=== PATIENT | male | born 1955 | race Caucasian/White ===

== ENCOUNTER 2016-09-21 12:29 | Emergency (ER) | payer BC ==
[2016-09-21] MEDS ORDERED: Sodium Chloride 0.9% 10 ML Syringe FLUSH PRN (13:07)
[2016-09-21] MEDS ORDERED: Ketorolac 30 MG/ML SDV IVPUSH ONE (13:07)
[2016-09-21 14:21] VITALS: BP 156/86
--- NOTE | 2016-09-21 14:25 | EDM.PDOC ---
ED HPI GENERAL MEDICAL PROBLEM - General Chief Complaint: Chest Pain Stated Complaint: CHEST PRESSURE Time Seen by Provider: 09/21/16 13:00 Source of Information: Reports: Patient History Limitations: Reports: No Limitations - History of Present Illness INITIAL COMMENTS - FREE TEXT/NARRATIVE: Rosalino is a 60 year old male with a hx of untreated HTN who presents to the ED today with c/o sudden onset of left sided non-radiating chest pain that started right after patient "sneezed really hard". Patient denies any known cardiac hx , he denies any family hx of heart disease. Patient does not smoke. Patient reports that he has had sinus drainage ongoing for the last several weeks that has not improved with decongestants including most recently singulair which was prescribed last week. Patient reports occasional cough. Patient does report mild sob with regard to not being able to breath out of his nose. Patient denies any radiating of his chest pain or associated numbness/tingling/nausea. Onset: Today, Sudden Left Chest Pain Score (Numeric/FACES): 3 - Related Data Allergies Allergy/AdvReac Type Severity Reaction Status Date / Time No Known Allergies Allergy Verified 09/21/16 12:41 Home Meds: Home Meds NK [No Known Home Meds] 09/21/16 [History] Past Medical History HEENT History: Reports: Other (See Below) Other HEENT History: laryngitis Cardiovascular History: Reports: Hypertension - Past Surgical History Neurological Surgical History: Reports: Laminectomy Social & Family History - Tobacco Use Smoking Status *Q: Never Smoker - Alcohol Use Days Per Week of Alcohol Use: 7 Number of Drinks Per Day: 4 Total Drinks Per Week: 28 - Recreational Drug Use Recreational Drug Use: No ED ROS GENERAL - Review of Systems Review Of Systems: ROS reveals no pertinent complaints other than HPI. ED EXAM, GENERAL - Physical Exam Exam: See Below Exam Limited By: No Limitations General Appearance: Alert, WD/WN, No Apparent Distress Eye Exam: Bilateral Eye: PERRL Ears: Normal External Exam, Normal TMs Nose: Normal Inspection Throat/Mouth: Normal Inspection, Normal Oropharynx Head: Atraumatic Neck: Normal Inspection, Supple, Non-Tender Respiratory/Chest: No Respiratory Distress, Lungs Clear, Other (left sided chest is tender to palpation) Cardiovascular: Normal Peripheral Pulses, Regular Rate, Rhythm, No Edema, No Murmur GI/Abdominal: Normal Bowel Sounds, Non-Tender Neurological: Alert, Oriented, CN II-XII Intact, Normal Cognition Psychiatric: Normal Affect, Normal Mood Skin Exam: Warm, Dry, Intact Lymphatic: No Adenopathy EKG INTERPRETATION EKG Date: 09/21/16 Time: 13:00 Rhythm: NSR [place]: normal P-wave: present QRS: normal ST-T: normal QT: normal Comparison: NA - no prior EKG Course - Vital Signs Text/Narrative:: Rosalino is a 60 year old male who presents to the ED today with c/o left sided chest pain. Patient on arrival here has pain with palpation of left chest, likely pleuritic vs. muscul-skeletal in nature rather than cardiac. Please refer to HPI and focused exam. Patient on exam is welll hydrated, he is non- toxic appearing. Patient does have some minimal frontal sinus tenderness on exam. EKG obtained on arrival and is negative for any acute ischemic changes. Blood work was obtained and is rather unremarkable. Patient has a normal white count, CMP returns with mildly elevated AST of 56 and is otherwise WNL. Troponin is undectable. CXR negative for any acute infiltrate, reviewed with Dr. Schmid. I feel patient's pain is likely pleuritic. I feel he is stable to be discharged home. With regard to sinus drainage/pressure and ongoing symptoms, I am going to start patient on a Z pack for acute sinusitis as well as Flonase. Patient can continue Singulair as prescribed. I would like patient to follow up with his PCP in the next week for ED visit today as well as discuss blood pressure and to see if patient needs to resume taking an anti- hyptertensive. Reasons to return to the ED were discussed. Patient and his family are agreeable to plan of care and questions were answered prior to discharge. Patient discharged from the ED in stable condition. Last Recorded V/S: Last Vital Signs Temp 36.4 C 09/21/16 12:36 Pulse 79 09/21/16 14:17 Resp 16 09/21/16 14:17 BP 156/86 H 09/21/16 14:17 Pulse Ox 96 09/21/16 14:17 - Orders/Labs/Meds Orders: Active Orders 24 hr Category Date Time Status EKG Documentation Completion [RC] ASDIRECTED Care 09/21/16 13:08 Active Peripheral IV Care [RC] . DIRECTED Care 09/21/16 13:07 Active Chest 2V [CR] Stat Exams 09/21/16 13:08 Taken Peripheral IV Insertion Adult [OM.PC] Routine Oth 09/21/16 13:07 Ordered EKG 12 Lead [EK] Stat Ther 09/21/16 13:08 Ordered Labs: Laboratory Tests 09/21/16 09/21/16 Range/Units 13:16 13:16 WBC 4.9 (4.5-11.0) K/uL RBC 4.47 (4.30-5.90) M/uL Hgb 14.5 (12.0-15.0) g/dL Hct 43.4 (40.0-54.0) % MCV 97 (80-98) fL MCH 32 H (27-31) pg MCHC 33 (32-36) % Plt Count 151 (150-400) K/uL Neut % (Auto) 65 (36-66) % Lymph % (Auto) 22 L (24-44) % [place] % (Auto) 11 H (2-6) % Eos % (Auto) 1 L (2-4) % Baso % (Auto) 1 (0-1) % Sodium 135 L (140-148) mmol/L Potassium 4.3 (3.6-5.2) mmol/L Chloride 99 L (100-108) mmol/L Carbon Dioxide 29 (21-32) mmol/L Anion Gap 11.3 (5.0-14.0) mmol/L BUN 14 (7-18) mg/dL Creatinine 1.0 (0.8-1.3) mg/dL Est Cr Clr Drug Dosing 91.00 mL/min Estimated GFR (MDRD) > 60 (>60) Glucose 107 H (74-106) mg/dL Calcium 8.6 (8.5-10.1) mg/dL Total Bilirubin 0.6 (0.2-1.0) mg/dL AST 56 H (15-37) U/L ALT 72 (12-78) U/L Alkaline Phosphatase 55 (46-116) U/L Troponin I < 0.017 (0.000-0.056) ng/mL C-Reactive Protein 0.22 (0.0-0.3) mg/dL Total Protein 7.7 (6.4-8.2) g/dL Albumin 3.7 (3.4-5.0) g/dL Globulin 4.0 H (2.3-3.5) g/dL Albumin/Globulin Ratio 0.9 L (1.2-2.2) Meds: Medications Discontinued Medications Generic Name Dose Route Start Last Admin Trade Name Freq PRN Reason Stop Dose Admin Ketorolac Tromethamine 30 mg 09/21/16 13:07 09/21/16 13:57 Toradol IVPUSH 09/21/16 13:08 30 mg ONETIME ONE Administration Sodium Chloride 10 ml 09/21/16 13:07 09/21/16 13:21 Saline Flush FLUSH 10 ml ASDIRECTED PRN Administration Keep Vein Open Departure - Departure Time of Disposition: 14:30 Disposition: Home, Self-Care 01 Condition: good Clinical Impression: Pleuritic chest pain, Acute sinusitis with symptoms > 10 days Clinical Impression: (Ruled Out): Paroxysmal supraventricular tachycardia - Discharge Information Instructions: Chest Wall Pain, [id number], Sinusitis, Adult, [id number] Referrals: PCP,None [Primary Care Provider] - Forms: ED Department Discharge Additional Instructions: Start the Z pack today. You can start the Flonase tonight. Keep track of your blood pressure. Follow up with Primary Care later this week. Return to the ED with any complications/worsening symptoms. - My Orders Last 24 Hours: My Active Orders 09/21/16 13:07 Peripheral IV Care [RC] . DIRECTED Peripheral IV Insertion Adult [OM.PC] Routine 09/21/16 13:08 EKG Documentation Completion [RC] ASDIRECTED Chest 2V [CR] Stat EKG 12 Lead [EK] Stat - Assessment/Plan Last 24 Hours: My Active Orders 09/21/16 13:07 Peripheral IV Care [RC] . DIRECTED Peripheral IV Insertion Adult [OM.PC] Routine 09/21/16 13:08 EKG Documentation Completion [RC] ASDIRECTED Chest 2V [CR] Stat EKG 12 Lead [EK] Stat
--- NOTE | 2016-09-22 10:26 | CR ---
Chest 2V HISTORY: No Clinical Info FINDINGS: Heart size within normal limits. Pulmonary vasculature within normal limits. No evidence f or focal consolidation or cardiopulmonary process. IMPRESSION: No radiographic evidence for acute cardiopulmonary process.
== END 2016-09-21 14:36 | disposition home or self-care (01) ==
LOC: JP.ED 12:29
DX: R07.81 Pleurodynia (principal); J01.90 Acute sinusitis, unspecified; I10 Essential (primary) hypertension; Z98.890 Other specified postprocedural states
CPT/HCPCS: 36415; 71020; 80053; 84484; 85025; 86140; 93005; 96374; 99285; J1885; J7050

== ENCOUNTER 2016-11-22 12:32 | Emergency (ER) | payer BC ==
[2016-11-22 12:58] VITALS: BP 170/102
--- NOTE | 2016-11-22 13:28 | EDM.PDOCBH ---
[id number]: ANXIETY Time Seen by Provider: 11/22/16 13:10 Source of Information: Reports: Patient, Family History Limitations: Reports: No Limitations - History of Present Illness INITIAL COMMENTS - FREE TEXT/NARRATIVE: 61-year-old male with chronic anxiety, alcohol abuse issues just got diagnosed with lung cancer 2 days ago. He is having a lot of anxiety dealing with this, he knows he can't drink but is afraid he may have some withdrawal. His left for a while this morning to do some errands and he hyperventilated but calmed down when she got home. Severity: Moderate Associated Symptoms: Reports: Malaise, Shortness of Breath. Denies: Chest Pain , Nausea/Vomiting DENIES Pain Score (Numeric/FACES): 0 - Related Data Allergies Allergy/AdvReac Type Severity Reaction Status Date / Time No Known Allergies Allergy Verified 11/22/16 13:01 Home Meds: Home Meds NK [No Known Home Meds] 09/21/16 [History] Past Medical History HEENT History: Reports: Other (See Below) Other HEENT History: laryngitis Cardiovascular History: Reports: Hypertension Respiratory History: Reports: Other (See Below) Other Respiratory History: seasonal allergies. Recent lung ca diagnosis Psychiatric History: Reports: Anxiety Oncologic (Cancer) History: Reports: Lung - Past Surgical History Respiratory Surgical History: Reports: None Neurological Surgical History: Reports: Laminectomy Musculoskeletal Surgical History: Reports: Other (See Below) Other Musculoskeletal Surgeries/Procedures:: laminectomy Social & Family History - Tobacco Use Smoking Status *Q: Never Smoker Second Hand Smoke Exposure: No - Alcohol Use Days Per Week of Alcohol Use: 7 Number of Drinks Per Day: 4 Total Drinks Per Week: 28 - Recreational Drug Use Recreational Drug Use: No ED ROS GENERAL - Review of Systems Review Of Systems: See Below Constitutional: Reports: Malaise. Denies: Fever, Chills HEENT: Reports: Other (Horse voice) Respiratory: Reports: Shortness of Breath, Cough Cardiovascular: Denies: Chest Pain GI/Abdominal: Denies: Nausea, Vomiting Neurological: Reports: Tremors Psychiatric: Reports: Anxiety ED EXAM, BEHAVIORAL HEALTH - Physical Exam Exam: See Below Exam Limited By: No Limitations General Appearance: Alert, No Apparent Distress Respiratory/Chest: No Respiratory Distress, Lungs Clear Cardiovascular: Regular Rate, Rhythm Neurological: Alert Psychiatric: Depressed Mood Skin Exam: Warm, Dry COURSE, BEHAVIORAL HEALTH COMP - Course Vital Signs: Last Vital Signs Temp 98.4 F 11/22/16 12:55 Pulse 98 11/22/16 12:55 Resp 16 11/22/16 12:55 BP 170/102 H 11/22/16 12:55 Pulse Ox 96 11/22/16 12:55 Re-Assessment/Re-Exam: Patient will be given 10 doses of Ativan 1 mg to take every 3-4 hours as needed for the next 2 days until his appointment with oncology follow-up on Wednesday. Departure - Departure Time of Disposition: 13:49 Disposition: Home, Self-Care 01 Condition: Good Clinical Impression: Anxiety - Discharge Information Instructions: Panic Attacks, [id number] Referrals: PCP,None [Primary Care Provider] - Forms: ED Department Discharge Care Plan Goals: Take one Ativan up to every 3-4 hours maximum over the next 2 days. Avoid alcohol if possible. Recheck on Wednesday as scheduled.
== END 2016-11-22 13:50 | disposition home or self-care (01) ==
LOC: JP.ED 12:32
DX: F41.9 Anxiety disorder, unspecified (principal); I10 Essential (primary) hypertension; C34.90 Malignant neoplasm of unspecified part of unspecified bronchus or lung; Z98.890 Other specified postprocedural states
CPT/HCPCS: 99283